=== PATIENT | male | born 2000 | race African-American/Black ===

== ENCOUNTER 2022-06-05 23:04 | Emergency (ER) | payer MEDICAID ==
[~2022-06-05] VITALS: Ht 188 cm; Wt 67.6 kg
[2022-06-05 23:10] VITALS: BP 109/57
--- NOTE | 2022-06-05 23:13 | NUR ---
TO LOBBY A/W BED AMBULATORY
--- NOTE | 2022-06-06 00:36 | NUR ---
PT AMBULATED TO BED 11.
[2022-06-06] MEDS ORDERED: FAMOTIDINE 20 MG TAB PO ONE (02:00)
[2022-06-06] MEDS ORDERED: ONDANSETRON 4 MG ODT PO ONE (02:00)
[2022-06-06] MEDS ORDERED: FAMO-90 PO (02:02)
[2022-06-06] MEDS ORDERED: ONDA-188 SL (02:02)
--- NOTE | 2022-06-06 02:08 | NUR ---
Patient discharged with v/s stable. Written and verbal after care instructions given and explained. Patient alert, oriented and verbalized understanding of instructions. Ambulatory with steady gait. All questions addressed prior to discharge. ID band removed. Patient advised to follow up with PMD. Rx of zofran and pepcid given. Patient educated on indication of medication including possible reaction and side effects. Opportunity to ask questions provided and answered.
[2022-06-06] MEDS ORDERED: LOTC TP (04:42)
== END 2022-06-06 02:08 | disposition home or self-care (01) ==
LOC: MED 23:04
DX: K52.9 Noninfective gastroenteritis and colitis, unspecified (principal); B35.4 Tinea corporis; F12.90 Cannabis use, unspecified, uncomplicated; Z79.899 Other long term (current) drug therapy
CPT/HCPCS: 99283; Q0162